=== PATIENT | female | born 1990 | race African-American/Black ===

== ENCOUNTER 2018-06-21 07:06 | Day surgery (SDC) | payer BC ==
[~2018-06-21] VITALS: Ht 172.7 cm; Wt 65.8 kg
[2018-06-21] VITALS (8 sets, daily range): BP systolic 100–111; BP diastolic 62–76
[~2018-06-21 07:06] MED LIST: OMEGA 3 1,0001 EACH PO; PROBIOTIC1 EAC2 PO; SPIRONOLACTONE100 MG ORAL; VITAMIN D400 INTLU ORAL
[2018-06-21] MEDS ORDERED: ceFAZolin sod 1 GM in NS 55 ML IVPB ONE (08:00)
[2018-06-21] MEDS ORDERED: Lidocaine 1% Plain 30 ml INJ ONE (08:06)
[2018-06-21] MEDS ORDERED: Betadine 10% Oint 30gm TOPIC ONE ×2 (08:07→09:39)
[2018-06-21] MEDS ORDERED: Dexamethasone 4mg/ml vial ONE (08:08)
[2018-06-21] MEDS ORDERED: Bupivacaine 0.25% Inj 30ml INJ ONE (08:08)
[2018-06-21] MEDS ORDERED: Bacitracin 50000 Units Vial ONE (08:08)
[2018-06-21] MEDS ORDERED: fentaNYL 100 mcg/2 mL IV ONE (08:51)
[2018-06-21] MEDS ORDERED: Propofol 200mg/20ml IV ONE (08:51)
[2018-06-21] MEDS ORDERED: Lidocaine 1% MPF 10mg/ml 5ml ONE (08:51)
[2018-06-21] MEDS ORDERED: Midazolam 2mg/2ml Inj ONE (08:52)
--- NOTE | 2018-06-21 08:54 | Pre-Procedure Note/Attestation ---
Pre-Procedure Note/Attestation Complete Prior to Procedure Planned Procedure: bilateral Procedure Narrative: correction of hammer toe and mallet toe 5th right, 5th left and 4rth left with arthroplasty and possible k-wire fixation Indications for Procedure Pre-Operative Diagnosis: hammer toe 5th bilatral and mallet toe left 4rth Attestation I attest that I discussed the nature of the procedure; its benefits; risks and complications; and alternatives (and the risks and benefits of such alternatives ), prior to the procedure, with the patient (or the patient's legal artist representative). I attest that, if there was a reasonable possibility of needing a blood transfusion, the patient (or the patient's legal artist representative) was given the [place] [facility] standardized written summary, pursuant to the [place] Blood Safety Act ([place] Health and Safety Code # 1645, as amended). I attest that I re-evaluated the patient just prior to the surgery and that there has been no change in the patient's H&P, except as documented below: Celestino Henderson DPM June 21, 2018 08:54
[2018-06-21] MEDS ORDERED: DiphenhydrAMINE 50mg/ml Inj ONE (08:57)
[2018-06-21] MEDS ORDERED: NS Irrig 1000ml IRRIG ONE (08:58)
[2018-06-21] MEDS ORDERED: NS Irrig 1000ml ONE (09:00)
[2018-06-21] MEDS ORDERED: LR 1000ml ONE (09:00)
[2018-06-21] MEDS ORDERED: Sterile Water Irrig 1000ml IRRIG ONE (09:00)
--- NOTE | 2018-06-21 09:20 | Anethesia Preoperative Eval ---
Anesthesia Pre-op PMH/ROS General Date of Evaluation: June 21, 2018 Anesthesiologist: Paras ASA Score: ASA 1 Mallampati Score Class I : Soft palate, uvula, fauces, pillars visible Class II: Soft palate, uvula, fauces visible Class III: Soft palate, base of uvula visible Class IV: Only hard plate visible Mallampati Classification: Class I Surgeon: Beatriz Diagnosis: hammertoe Surgical Procedure: Hammertoe correction left 4th and 5th digit, right 5th digit Anesthesia History: none Family History: no anesthesia problems Allergies: Coded Allergies: No Known Allergies (Unverified , 06/21/18) Medications: see eMAR Patient NPO?: Yes NPO Date: June 20, 2018 NPO Time: 22:00 Past Medical History Cardiovascular: Denies: HTN, CAD, [place], valve dz, arrhythmia, other Pulmonary: Denies: asthma, COPD, MARIA D, other Gastrointestinal/Genitourinary: Denies: GERD, CRI, ESRD, other Neurologic/Psychiatric: Denies: dementia, CVA, depression/anxiety, TIA, other Endocrine: Denies: DM, hypothyroidism, steroids, other HEENT: Denies: cataract (L), cataract (R), glaucoma, [place] (L), [place] (R), other Hematology/Immune: Denies: anemia, DVT, bleeding disorder, other Musculoskeletal/Integumentary: Denies: OA, RA, DJD, DDD, edema, other PSxH Narrative: Hernia surgery as a baby Anesthesia Pre-op Phys. Exam Physician Exam Last Vital Signs Date Time Temp Pulse Resp B/P (MAP) Pulse Ox O2 Delivery O2 Flow Rate FiO2 06/21/18 07:39 Room Air 06/21/18 07:35 97.7 69 18 102/76 99 Constitutional: NAD Cardiovascular: RRR Respiratory: CTA Airway Exam Mallampati Score: Class I MO: full ROM: full Teeth: intact Anesthesia Pre-op A/P Labs see chart Urine Test Test 06/21/18 07:00 Urine HCG, Qualitative Negative (NEGATIVE) Studies Pre-op Studies: EKG - sr Risk Assessment & Plan Assessment: ASA I Plan: MAC Status Change Before Surgery: No Pre-Antibiotics Drug: Ancef 1g Given Within 1 Hr of Incision: Yes Kay Obrien MD June 21, 2018 09:20
[2018-06-21] MEDS ORDERED: LR 1000ml 1,000 ML IVLG SCH (09:21)
[2018-06-21] MEDS ORDERED: Ketorolac 30mg Inj IV PRN (09:30)
[2018-06-21] MEDS ORDERED: DiphenhydrAMINE 50mg/ml Inj IVP PRN (09:30)
[2018-06-21] MEDS ORDERED: Midazolam 2mg/2ml Inj IVP PRN (09:30)
[2018-06-21] MEDS ORDERED: LORazepam Inj 2mg/ml 1ml IV PRN (09:30)
[2018-06-21] MEDS ORDERED: Metoclopramide 10mg/2ml Inj IVP PRN (09:30)
[2018-06-21] MEDS ORDERED: fentaNYL 100 mcg/2 mL IV PRN (09:30)
[2018-06-21] MEDS ORDERED: Hydromorphone 0.5mg/0.5ml inj IVP PRN (09:30)
--- NOTE | 2018-06-21 10:44 | Immediate Post-Op Evaluation ---
Immediate Post-Op Evalulation Immediate Post-Op Evalulation Procedure: Hammertoe correction left 4th and 5th digit, right 5th digit Date of Evaluation: June 21, 2018 Time of Evaluation: 10:45 IV Fluids: 600 Blood Products: 0 Estimated Blood Loss: min Urinary Output: 0 Blood Pressure Systolic: 111 Blood Pressure Diastolic: 71 Pulse Rate: 65 Respiratory Rate: 16 O2 Sat by Pulse Oximetry: 100 Temperature (Fahrenheit): 97.7 Pain Score (1-10): 0 Nausea: No Vomiting: No Complications 0 Patient Status: awake, reacts, patent, none Hydration Status: adequate Drug: Ancef 1g Given Within 1 Hr of Incision: Yes Kay Obrien MD June 21, 2018 10:44
--- NOTE | 2018-06-21 10:44 | 48 Hour Post Anesthesia Eval ---
Post Anesthesia Evaluation Procedure: Hammertoe correction left 4th and 5th digit, right 5th digit Date of Evaluation: June 21, 2018 Airway: patent Nausea: No Vomiting: No Pain Intensity: 0 Hydration Status: adequate Cardiopulmonary Status: at baseline Mental Status/LOC: patient returned to baseline Post-Anesthesia Complications: 0 Follow-up care needed: ready to discharge Kay Obrien MD June 21, 2018 10:44
--- NOTE | 2018-06-21 10:45 | Brief Operative Note ---
Immediate Post Operative Note Operative Note Pre-op Diagnosis: hammer toe 5th bilatral and mallet toe left 4rth Procedure: correction of hammer toe bilateral 5th with arthroplasty and 4rth left with arthroplasty Post-op Diagnosis: same as pre-op Surgeon: celestino henderson Anesthesiologist: gianni Anesthesia: MAC Specimen: yes Complications: none Condition: stable Fluids: 0 Estimated Blood Loss: none Drains: none Tourniquet time: 49 - min Implant(s) used?: No Celestino Henderson DPM June 21, 2018 10:45
--- NOTE | 2018-06-21 12:13 | Diagnostic Imaging Report ---
Indication: Postop Comparison: None Findings: 3 views of the left foot were obtained. Partial resection of portions of the fourth DIP joint and 50 P joints noted. There is no malalignment. IMPRESSION: Postop confirmation
--- NOTE | 2018-06-21 12:14 | Diagnostic Imaging Report ---
Indication: Postop Comparison: None Findings: 3 views of the right foot were obtained. Postop image showing a rib partial resection of the fifth PIP joint. Some soft tissue swelling is noted. IMPRESSION: Postop confirmation
--- NOTE | 2018-06-21 12:18 | Diagnostic Imaging Report ---
Indication: Foot pain Comparison: None Findings: 3 views of the left foot were obtained. No acute fractures, malalignment, erosions or periostitis are identified. Soft tissues are unremarkable. Impression: No acute findings
--- NOTE | 2018-06-21 12:18 | Diagnostic Imaging Report ---
Indication: Foot Pain Comparison: None Findings: 3 views of the right foot were obtained. No acute fractures, malalignment, erosions or periostitis are identified. Soft tissues are unremarkable. Impression: No acute findings.
--- NOTE | 2018-06-21 20:30 | Operative Note - Dictated ---
DATE OF OPERATION: 06/21/2018 SURGEON: Celestino Henderson D.P.M. ANESTHESIOLOGIST: Kay Crain M.D. PREOPERATIVE DIAGNOSES: Hammertoe with IPK, bilateral fifth and mallet toe with IPK, fourth left. POSTOPERATIVE DIAGNOSES: Hammertoe with IPK, bilateral fifth and mallet toe with IPK, fourth left. TITLE OF OPERATION: 1. Correction of hammertoe, bilateral fifth. 2. Arthroplasty and release of the flexor tendon and correction with mallet toe, left with arthroplasty at the DIPJ joint with release of the flexor tendon. HEMOSTASIS: Pneumatic ankle tourniquet at 250 mmHg. ESTIMATED BLOOD LOSS: Negligible. MATERIALS USED: 3-0 Vicryl, 5-0 nylon. INJECTABLES: 20 mL of 0.25% plain Marcaine and 1% plain lidocaine ratio 1:1 that was injected in the right and the left foot in terms of a Bose block fashion and digits fifth bilaterally and fourth left. Postoperatively, 2 mL of dexamethasone plus 6 mL of Marcaine was injected into the digits fifth bilaterally and fourth left. PATHOLOGY: Bone resected from the proximal phalanx was sent for pathology and further study. DRESSING: The incision was covered with Xeroform, Betadine ointment, 4 x 4, sterile Coban. COMPLICATION: None. CONDITION: Stable. DESCRIPTION OF PROCEDURE IN DETAIL: The patient was brought into operating room and placed on the operating table in a supine position. She was well padded to avoid any excessive pressure. The patient was then given 1 g of Ancef before the start of surgery and time-out was performed. A well-padded pneumatic ankle tourniquet was then placed to the patient's right as well as the left ankle. Local anesthesia block was administered to the patient in terms of a Bose block fashion in digits fifth bilaterally and left fourth toe. The foot was then scrubbed, prepared, and draped in the usual manner. Attention was then turned to the right foot. A pneumatic ankle tourniquet was then inflated to 250 mmHg after exsanguination with an Esmarch. At this time, a preplanned incision was made on the fifth toe. The incision was vertical crossing the deformity at the PIPJ joint. The incision was deepened through subcutaneous tissue to the level of capsule and a transverse incision was made on the capsule to expose the capsule. At this time, the head of the proximal phalanx was freed from medial and lateral attachments. It was noticed to be hypertrophic. At this time, using a sagittal saw, approximately 3 mm of the head was osteotomized and passed from the field. At this time through the original incision, the flexor tendon was released and the toe was noticed to be in the direct alignment position. Following the surgery, the area was copiously lavaged with normal saline. The capsule and extensor tendon were reapproximated using 3-0 Vicryl and subcutaneous skin was closed using 5-0 nylon. At this time, dressing consisted of Xeroform, Betadine ointment, 4 x 4, Marshall, and Coban was applied and an injection of approximately 2 mL containing mixture of dexamethasone and Marcaine was given in the area for postoperative edema and pain management. After the dressing was applied, the tourniquet was deflated and immediate hyperemia noted to digits 1 through 5 on the right foot. At this time, attention was directed to the left foot where the ankle tourniquet was inflated to 250 mmHg using an Esmarch. At this time, a planned incision was made on the left foot concentrating on the fifth digit. A linear incision at this time was made over the deformity approximately 5 mm proximal to head of the phalanx and 4 mm distal to the base of the middle phalanx. The incision was deepened through subcutaneous tissue. Upon reaching the capsule, a horizontal capsulotomy was performed to expose the head of the fifth proximal phalanx, which was supposed to be hypertrophic. Using a sagittal saw, approximately 3 to 4 mm of the head was removed. Upon completion going through the same incision site, the plantar flexor was released. The toe was noticed to be in good alignment. At this time, the dorsal capsule as well as the extensor tendon was closed using 3-0 Vicryl and subcutaneous skin was closed using 5-0 nylon. At this time, attention was then directed to the fourth toe where deformity was occurring on the DIPJ joint. A horizontal incision paralleling the skin line was made over the DIPJ joint. The incision was deepened through subcutaneous tissue down to the level of capsule and horizontal capsulotomy was then performed to expose the head of the middle phalanx, which was noticed to be hypertrophic. The head was then osteotomized using a sagittal saw, approximately 3 mm was removed. Going through the original incision, the flexor tendon was then released and immediate correction of the DIPJ joint was noticed to be in rectus position. At this time, the dorsal and the extensor tendon were reapproximated using 2-0 Vicryl and 3-0 Vicryl and subsequently the skin was closed using 5-0 nylon. An injection containing approximately 2 mL of a mixture of dexamethasone and Marcaine was injected through digits 5 on the left at the incision site. Incision was then dressed using Xeroform, Betadine ointment, 4 x 4, Marshall, and Coban. After the incision was dressed, the ankle tourniquet was deflated and immediate hyperemia noticed to digits 1 through 5 on the left. The patient was then transferred from the operating room to the recovery room with all vital signs stable. She will be given crutches and postoperative shoe. She was instructed before the surgery with clear instructions for after surgery and followup appointment with Dr. Henderson. There were no complications to the surgery. The patient will be discharged home once she is cleared by the anesthesiologist. Chiki DalalPGuero OZUNA: HERBIE JOB#: [id number] CC:
--- NOTE | 2018-06-21 22:00 | Pre-op HX & Phy Repo 2 SIG ---
DATE OF ADMISSION: 06/21/2018 DATE OF OPERATION: Today, 06/21/2018. HISTORY OF PRESENT ILLNESS: This is a 27-year-old female, complaining of bilateral foot pain secondary to hammertoe deformity that is causing a painful corn. Hammertoes are located at digits fifth right, fifth left, and fourth toe in the DIPJ joint. The pain has been getting progressively worse during the past few years. The patient has tried conservative management including padding, offloading, change of shoe gear without any contributory decrease in the pain and deformity. She reports no recent illnesses. No recurrent nausea, vomiting, chills, or shortness of breath. The patient is scheduled to have surgery today at [facility]. PAST MEDICAL HISTORY: Not pertinent. PAST SURGICAL HISTORY: Not pertinent. ALLERGIES: No known drug allergies. SOCIAL HISTORY: Denies illicit drugs. FAMILY HISTORY: No pertinent findings. PHYSICAL EXAMINATION: VITAL SIGNS: Temperature 99.8, pulse is 66, respiratory rate is 16, and blood pressure is 120/80. DERMATOLOGICAL: There are no open lesions. There is hyperkeratotic tissue on the PIPJ of bilateral fifth and DIPJ of the fourth on the left. MUSCULOSKELETAL: Contraction of the digits, bilateral fifth and fourth is noticed. Otherwise, full muscle strength. No swelling is noted. ASSESSMENT AND PLAN: This is a 27-year-old female with bilateral foot pain secondary to hammertoe and mallet toe formation. The patient has tried conservative measures, however, she still has daily pain. Recommended surgery as the next extensive management. The risks, benefits, and alternatives were discussed with the patient in detail. She understands and wants to proceed with the surgical intervention. All the patient's questions have been answered and the patient is scheduled to have surgery today at [facility]. Celestino Henderson D.P.M. DR: ANGELINA JOB#: [id number] CC:
== END 2018-06-21 13:00 | disposition home or self-care (01) ==
LOC: SUR 07:06
DX: M20.42 Other hammer toe(s) (acquired), left foot (principal); M20.41 Other hammer toe(s) (acquired), right foot; L84 Corns and callosities
CPT/HCPCS: 28285; 73630; 81025; 97161; J0690; J1100; J1200; J2001; J2250; J2704; J3010; J3490; 94003; 94150